=== PATIENT | male | born 2005 | race Caucasian/White ===

== ENCOUNTER 2023-11-14 19:03 | Emergency (ER) | payer BC ==
[2023-11-14 19:40] VITALS: BP 133/83; PULSE 80; RESP 16; TEMP 98.3; BMI 26.4
[2023-11-14] MEDS: SODIUM CHLORIDE 0.9%/KCL 20 MEQ/1,000 ML INFUS.BAG IV SCH (20:15)
[2023-11-14] MEDS ORDERED: ACETAMINOPHEN INJECTION 100 ML IVPB ONE (20:24)
[2023-11-14 20:25] LABS: HEMATOCRIT 52.4 % (35.4-49); HEMOGLOBIN 17.9 G/dL (11.7-16.9); MCH 31.1 pg (25.7-33.7); MCHC 34.2 g/dl (32.0-35.9); MEAN CELL VOLUME 91.2 fl (80-96); MEAN PLT VOLUME 8.2 fl (7.5-11.1); PLATELET COUNT 304.6 10^3/uL (134-434); RBC 5.75 10^6/uL (4.00-5.60); RDW 13.8 % (11.9-15.9); WHITE BLOOD COUNT 16.1 10^3/uL (4.0-10.8)
[2023-11-14] MEDS: ACETAMINOPHEN 1000 MG/100 ML BAG IVPB ONE (20:25)
[2023-11-14 20:49] LABS: ALBUMIN 5.6 g/dl (3.4-5.0); BILIRUBIN,TOTAL 1.8 mg/dl (0.2-1); CALCIUM 10.5 mg/dl (8.5-10.1); CREATININE 1.4 mg/dl (0.6-1.3); POTASSIUM 3.3 mmol/L (3.5-5.1); TOT PROT 7.9 g/dl (6.4-8.2)
[2023-11-14 21:03] LABS: PLATELET ESTIMATE ADEQUATE
[2023-11-14] MEDS ORDERED: KETOROLAC TROMETHAMINE 30 MG/1 ML VIAL ONE (22:18)
[2023-11-14] MEDS: KETOROLAC TROMETHAMINE 30 MG/1 ML VIAL IVPUSH ONE (22:27)
[2023-11-14 22:29] LABS: HEMATOCRIT 49.7 % (35.4-49); HEMOGLOBIN 16.9 G/dL (11.7-16.9); MCH 30.9 pg (25.7-33.7); MCHC 34.1 g/dl (32.0-35.9); MEAN CELL VOLUME 90.7 fl (80-96); MEAN PLT VOLUME 8.3 fl (7.5-11.1); PLATELET COUNT 294.4 10^3/uL (134-434); RBC 5.48 10^6/uL (4.00-5.60); RDW 13.4 % (11.9-15.9); WHITE BLOOD COUNT 17.3 10^3/uL (4.0-10.8)
[2023-11-14 22:41] LABS: CALCIUM 9.6 mg/dl (8.5-10.1); CREATININE 1.3 mg/dl (0.6-1.3); POTASSIUM 3.3 mmol/L (3.5-5.1)
[2023-11-14] MEDS ORDERED: POTASSIUM CHLORIDE ORAL LIQUID 20 MEQ/15 ML ONE ×2 (22:45→23:16)
[2023-11-14] MEDS: POTASSIUM CHLORIDE ORAL LIQUID 20 MEQ/15 ML PO ONE ×2 (22:48→23:20)
[2023-11-14] MEDS: SODIUM CHLORIDE 500 ML IV STA (23:13)
== END 2023-11-14 23:50 | disposition home or self-care (01) ==
LOC: FER 19:03
PROC: 3E030NZ Introduction of Analgesics, Hypnotics, Sedatives into Peripheral Vein, Open Approach (ICD-10-PCS; principal; 2023-11-14)
PROC: 3E0303Z Introduction of Anti-inflammatory into Peripheral Vein, Open Approach (ICD-10-PCS; 2023-11-14)
PROC: 3E0337Z Introduction of Electrolytic and Water Balance Substance into Peripheral Vein, Percutaneous Approach (ICD-10-PCS; 2023-11-14)
DX: J02.0 Streptococcal pharyngitis (principal); R11.2 Nausea with vomiting, unspecified; R59.0 Localized enlarged lymph nodes
CPT/HCPCS: 36415; 80048; 80053; 81003; 81015; 85027; 99284-25; J0131

== ENCOUNTER 2024-06-28 10:38 | Emergency (ER) | payer BC ==
[2024-06-28 10:50] VITALS: BP 149/85; PULSE 62; RESP 20; TEMP 98.2; BMI 27.2
[2024-06-28] MEDS: ONDANSETRON *ODT* 4 MG TABLET SL ONE (11:15)
[2024-06-28] MEDS ORDERED: ONDANSETRON *ODT* 4 MG TABLET ONE (11:21)
[2024-06-28] MEDS ORDERED: PROCHLORPERAZINE INJECTION 10 MG/2 ML VIAL ONE (12:24)
[2024-06-28] MEDS ORDERED: MAG HYDROX/AL HYDROX/SIMETH 30 ML UNIT-DOSE CUP ONE (12:24)
[2024-06-28] MEDS ORDERED: FAMOTIDINE 20 MG TABLET ONE (12:24)
[2024-06-28] MEDS: FAMOTIDINE 20 MG TABLET PO ONE (12:31)
[2024-06-28] MEDS: MAG HYDROX/AL HYDROX/SIMETH -MYLANTA- ORAL SUSPENSION PO ONE (12:31)
[2024-06-28] MEDS: PROCHLORPERAZINE INJECTION 10 MG/2 ML VIAL IM ONE (12:32)
[2024-06-28] MEDS: MAG HYDROX/AL HYDROX/SIMETH 30 ML UNIT-DOSE CUP PO ONE (13:22)
== END 2024-06-28 13:37 | disposition home or self-care (01) ==
LOC: FER 10:38
PROC: 3E023GC Introduction of Other Therapeutic Substance into Muscle, Percutaneous Approach (ICD-10-PCS; principal; 2024-06-28)
DX: R11.2 Nausea with vomiting, unspecified (principal); R53.81 Other malaise; Z20.822 Contact with and (suspected) exposure to COVID-19
CPT/HCPCS: 0241U-QW; 99284-25; Q0162